=== PATIENT | female | born 1990 | race Caucasian/White ===

== ENCOUNTER 2019-12-31 20:16 | Emergency (ER) | payer OTHER ==
[~2019-12-31] VITALS: Ht 157.5 cm; Wt 73.5 kg
[2019-12-31 20:31] VITALS: Ht 157.5 cm; Wt 73.5 kg
[2019-12-31 22:10] VITALS: BP 116/86
== END 2019-12-31 22:10 | disposition home or self-care (01) ==
LOC: ED 20:16
DX: S66.911A Strain of unspecified muscle, fascia and tendon at wrist and hand level, right hand, initial encounter (principal); V49.49XA Driver injured in collision with other motor vehicles in traffic accident, initial encounter; Y93.I9 Activity, other involving external motion; Y92.413 State road as the place of occurrence of the external cause; Y99.8 Other external cause status
CPT/HCPCS: Q0092